=== PATIENT | male | born 1955 | race African-American/Black ===

== ENCOUNTER 2017-11-06 11:35 | Emergency (ER) | payer OTHER ==
[~2017-11-06] VITALS: Ht 182.9 cm; Wt 79.0 kg
[2017-11-06] MEDS ORDERED: TRAMADOL 50MG TABLET PO ONE (16:45)
[2017-11-06 16:52] VITALS: BP 136/80
== END 2017-11-06 16:54 | disposition home or self-care (01) ==
LOC: ER 12:50
DX: S61.011A Laceration without foreign body of right thumb without damage to nail, initial encounter (principal); E11.9 Type 2 diabetes mellitus without complications; I10 Essential (primary) hypertension; W45.8XXA Other foreign body or object entering through skin, initial encounter; Y93.89 Activity, other specified; Y99.8 Other external cause status; Y92.89 Other specified places as the place of occurrence of the external cause; Z98.890 Other specified postprocedural states
CPT/HCPCS: 29125; 82962; 99283

== ENCOUNTER 2017-11-20 13:25 | Emergency (ER) | payer SELFPAY ==
[~2017-11-20] VITALS: Ht 182.9 cm; Wt 80.0 kg
[2017-11-20 16:22] LABS: BASOPHILS % 0.2 % (0.0-2.0); EOSINOPHILS % 2.6 % (0.0-5.0); HEMOGLOBIN. 8.3 g/dL (14.0-18.0); LYMPHOCYTES % 20.3 % (20.0-50.0); MEAN CORPUSCULAR VOLUME 81.3 fL (80.0-94.0); MEAN PLATELET VOLUME 7.1 fl (7.4-10.4); MONOCYTES % 5.8 % (2.0-8.0); NEUTROPHILS % 71.1 % (40.0-76.0); PLATELET 708 x1000/uL (130-400); RED BLOOD CELL COUNT 3.08 mill/uL (4.7-6.1); RED CELL DISTRIBUTION WIDTH 16.4 % (11.6-14.6)
[2017-11-20 16:26] LABS: CHLORIDE 103 mEq/L (98-107)
[2017-11-20 16:31] LABS: CARBON DIOXIDE 24 mEq/L (21-32)
[2017-11-20 18:30] VITALS: BP 136/77
== END 2017-11-20 18:35 | disposition home or self-care (01) ==
LOC: ER 13:25
DX: S66.901A Unspecified injury of unspecified muscle, fascia and tendon at wrist and hand level, right hand, initial encounter (principal); L03.113 Cellulitis of right upper limb; M79.641 Pain in right hand; I10 Essential (primary) hypertension; E11.9 Type 2 diabetes mellitus without complications; X58.XXXA Exposure to other specified factors, initial encounter; Y93.89 Activity, other specified; Y92.89 Other specified places as the place of occurrence of the external cause; Y99.8 Other external cause status
CPT/HCPCS: 36415; 73130; 80053; 83605; 85025; 99285